=== PATIENT | male | born 1980 | race Caucasian/White ===

== ENCOUNTER 2016-04-26 20:25 | Emergency (ER) | payer MEDICARE ==
[2016-04-26 21:46] LABS: ABSOLUTE NEUTROPHIL COUNT 10.5 K/mm3 (1.8-7.7); BASO # 0.1 K/mm3 (0.0-0.2); BASO % 0.5 % (0.2-1.0); EOS # 0.4 (0.0-0.5); EOS % 2.6 % (0.9-2.9); HEMATOCRIT 52.3 % (32.0-52.0); HEMOGLOBIN 17.3 gm/l (14.0-18.0); IMM NEUT # 0.1 K/mm3 (0-0.2); IMM NEUT% 0.5 % (0-1); LYMPH # 3.6 (1.0-4.8); LYMPH % 23.1 % (15-45); MEAN CELL VOLUME 88.9 fl (80.0-94.0); MEAN CORPUSCULAR HEMOGLOBIN 29.4 pg (27.0-31.0); MEAN CORPUSCULAR HGB CONC 33.1 g/dl (33.0-37.0); MEAN PLATELET VOLUME 10.4 fl (7.4-10.4); MONO % 6.2 % (4-12); NEUT % 67.1 % (43-75); PLATELET COUNT 225 K/mm3 (130-400); RED CELL DISTRIBUTION WIDTH 13.2 % (11.5-14.5)
[2016-04-26 22:04] LABS: ALB/GLOB RATIO 1.4 (>1.0); ALBUMIN 4.2 gm/dL (3.5-5.7)
[2016-04-26 23:38] LABS: C DIFF TOXIN A/B NEGATIVE (NEGATIVE)
== END 2016-04-27 00:12 | disposition home or self-care (01) ==
LOC: ED 20:25
DX: A04.7 Enterocolitis due to Clostridium difficile (principal); F17.210 Nicotine dependence, cigarettes, uncomplicated